=== PATIENT | female | born 1985 | race African-American/Black ===

== ENCOUNTER → 2017-10-18 | Outpatient (CLI) | payer OTHER ==
--- NOTE | 2017-10-18 11:38 | REP ---
RIGHT ANKLE, FOUR VIEWS: There is no evidence of an acute fracture, dislocation or intrinsic bone disease. The ankle mortise is anatomic. IMPRESSION: No fracture or dislocation. Signed by Chito Baugh MD 10/18/2017 12:57 P
== END ==
LOC: M WUC 10:49
PROVIDERS: ATTEND Physician Assistant
DX: M25.579 Pain in unspecified ankle and joints of unspecified foot (principal)

== ENCOUNTER 2018-01-02 18:53 | Emergency (ER) | payer OTHER ==
[2018-01-02 21:14] LABS: BASO % 0.3 % (0.0-1.0); EOS # 0.3 10^3/uL (0.0-0.50); EOS % 3.7 % (0.0-3.0); HEMATOCRIT 38.6 % (36.0-47.0); IMMATURE GRANULOCYTE % 0.1 % (0-3.0); LYMPH # 3.6 10^3/uL (1.5-4.5); LYMPH % 51.7 % (24.0-44.0); MEAN CORPUSCULAR HEMOGLOBIN 29.4 pg (27.0-33.0); MEAN CORPUSCULAR HGB CONC 33.7 g/dl (32.0-36.5); MEAN CORPUSCULAR VOLUME 87.3 fl (80.0-96.0); MONO # 0.4 10^3/uL (0.0-0.8); MONO % 6.3 % (0.0-5.0); NEUTROPHILS # 2.6 10^3/uL (1.8-7.7); NEUTROPHILS % 37.9 % (36.0-66.0); PLATELET COUNT, AUTOMATED 241 10^3/uL (150-450); RED BLOOD COUNT 4.42 10^6/uL (4.00-5.40); RED CELL DISTRIBUTION WIDTH 12.6 % (11.5-14.5)
[2018-01-02 21:18] LABS: KETONE, URINE AUTO RFX NEGATIVE (NEGATIVE); LEUKOCYTE ESTERASE UR AUTO RFX NEGATIVE (NEGATIVE); MUCUS, URINE RFX SMALL (NEGATIVE); NITRITE, URINE AUTO RFX NEGATIVE (NEGATIVE); RBC, URINE AUTO RFX 2 /HPF (0-3); SPECIFIC GRAVITY UR AUTO RFX 1.008 (1.002-1.035); SQUAM EPITHELIAL CELL UR AURFX 1 /HPF (0-6); WBC, URINE AUTO RFX 0 /HPF (0-3)
[2018-01-02 21:24] LABS: INR 1.08; PROTHROMBIN TIME 14.2 SECONDS (12.4-14.5)
[2018-01-02 21:25] LABS: PARTIAL THROMBOPLASTIN TIME 28.8 SECONDS (26.8-37.9)
[2018-01-02] MEDS: MECLIZINE 25 MG TABLET PO (21:35)
[2018-01-02] MEDS: diphenhydrAMINE INJ 50MG/ML VIAL (J1200) IV (21:35)
[2018-01-02] MEDS: METOCLOPRAMIDE INJ 10MG/2ML VIAL (J2765) IV (21:36)
[2018-01-02 22:45] LABS: ANION GAP 7 MEQ/L (8-16); BLOOD UREA NITROGEN 10 MG/DL (7-18); CARBON DIOXIDE LEVEL 26 MEQ/L (21-32); CHLORIDE LEVEL 108 MEQ/L (98-107); CPK CREATINE PHOSPHOKINASE 199 U/L (26-192); CREATININE FOR GFR 0.77 MG/DL (0.55-1.30); GLOMERULAR FILTRATION RATE > 60.0 (>60); GLUCOSE, FASTING 79 MG/DL (70-100); POTASSIUM SERUM 4.1 MEQ/L (3.5-5.1); SODIUM LEVEL 141 MEQ/L (136-145); TROPONIN I < 0.02 NG/ML (< 0.10)
[2018-01-02 22:46] LABS: CK-MB VALUE MASS 1.3 NG/ML (0.0-3.6); MB/CK RELATIVE INDEX 0.65 (< OR =4)
[2018-01-03 12:31] LABS: BEDSIDE GLUCOSE 123 MG/DL (70-105)
== END 2018-01-02 23:19 | disposition home or self-care (01) ==
LOC: M ED 18:53
DX: H81.12 Benign paroxysmal vertigo, left ear (principal); H65.02 Acute serous otitis media, left ear; R51 Headache
CPT/HCPCS: J1200

== ENCOUNTER 2018-01-18 14:11 | Emergency (ER) | payer OTHER | END 2018-01-18 16:20 | disposition home or self-care (01) | LOC: M ED 14:11 | DX: Z32.02 Encounter for pregnancy test, result negative (principal); R10.11 Right upper quadrant pain | CPT/HCPCS: 81025 ==

== ENCOUNTER 2018-08-13 17:03 | Outpatient (CLI) | payer OTHER ==
[2018-08-13] MEDS: LR 1,000 ML IV (19:57)
[2018-08-13 20:29] LABS: APPEARANCE, URINE CLOUDY (CLEAR); BACTERIA, URINE AUTO 1+ (NEGATIVE); BILIRUBIN, URINE AUTO NEGATIVE (NEGATIVE); BLOOD, URINE BLOOD NEGATIVE (NEGATIVE); COLOR, URINE YELLOW (YELLOW); GLUCOSE, URINE (UA) AUTO NEGATIVE (NEGATIVE); KETONE, URINE AUTO TRACE mg/dL (NEGATIVE); LEUKOCYTE ESTERASE, URINE AUTO NEGATIVE (NEGATIVE); MUCUS, URINE SMALL (NEGATIVE); NITRITE, URINE AUTO NEGATIVE (NEGATIVE); PROTEIN, URINE AUTO NEGATIVE (NEGATIVE); RBC, URINE AUTO 2 /HPF (0-3); SPECIFIC GRAVITY URINE AUTO 1.014 (1.002-1.035); SQUAMOUS EPITHELIAL CELL UR AU 17 /HPF (0-6); UROBILINOGEN, URINE AUTO 0.2 mg/dL (0.0-2.0); WBC, URINE AUTO 3 /HPF (0-3)
== END 2018-08-13 22:35 | disposition home or self-care (01) ==
LOC: M LDO 17:03
DX: O47.03 False labor before 37 completed weeks of gestation, third trimester (principal); Z3A.34 34 weeks gestation of pregnancy
CPT/HCPCS: 59025

== ENCOUNTER 2018-09-24 03:45 | Inpatient (IN) | payer OTHER ==
[2018-09-24] MEDS: LACTATED RINGER'S 1000 ML IV (06:42)
[2018-09-24 07:34] LABS: HEMATOCRIT 39.9 % (36.0-47.0); HEMOGLOBIN 13.1 g/dl (12.0-15.5); MEAN CORPUSCULAR HEMOGLOBIN 30.5 pg (27.0-33.0); MEAN CORPUSCULAR HGB CONC 32.8 g/dl (32.0-36.5); MEAN CORPUSCULAR VOLUME 92.8 fl (80.0-96.0); PLATELET COUNT, AUTOMATED 210 10^3/uL (150-450); RED CELL DISTRIBUTION WIDTH 13.9 % (11.5-14.5); WHITE BLOOD COUNT 8.2 10^3/uL (4.0-10.0)
[2018-09-24] MEDS: LR 1,000 ML IV ×3 (08:36→22:42)
[2018-09-24] MEDS ORDERED: LR 1,000 ML IV (09:06)
[2018-09-24] MEDS: OXYTOCIN DRIP 30 UNITS in APPROPRIATE DILUENT 1 EA IV (09:51)
[2018-09-24] MEDS ORDERED: FENTANYL 2MCG/ML ROPIVACAINE 0.2% IN 0.9% NACL 200ML IVBAG As Ordered (11:03)
[2018-09-24] MEDS ORDERED: ePHEDrine SULFATE 25 MG/5 ML(5MG/ML) SYRINGE As Ordered (11:53)
[2018-09-24] MEDS: ePHEDrine SULFATE 25 MG/5 ML(5MG/ML) SYRINGE IV (11:55)
[2018-09-24] MEDS ORDERED: NALOXONE INJ 0.4 MG/1 ML VIAL (J2310) IV ×3 (12:00→22:36)
[2018-09-24] MEDS ORDERED: EPIDURAL COMMENT XX (12:00)
[2018-09-24] MEDS ORDERED: REFRIGERATOR IV KEYS XX (12:00)
[2018-09-24] MEDS ORDERED: ONDANSETRON 4MG/2ML VIAL (J2405) IV ×2 (12:00→22:36)
[2018-09-24] MEDS ORDERED: diphenhydrAMINE INJ 50MG/ML VIAL (J1200) IV (12:00)
[2018-09-24] MEDS ORDERED: EPIDURAL/PCA KEYS XX (12:00)
[2018-09-24] MEDS: FENTANYL/ROPIVACAINE/NACL BAG 200 ML EPIDURAL (12:00)
[2018-09-24] MEDS ORDERED: LACTATED RINGER'S 1000 ML IV (12:00)
[2018-09-24] MEDS ORDERED: ceFAZolin 2 GM/D5W 50 ML IV BAG (J0690 PER 500MG) As Ordered (22:10)
[2018-09-24] MEDS ORDERED: BICITRA 30ML SOLN UDC As Ordered (22:11)
[2018-09-24] MEDS ORDERED: AZITHROMYCIN INJ 500MG VIAL (J0456) As Ordered (22:11)
[2018-09-24] MEDS: AZITHROMYCIN INJ 500 MG, VIAL MATE ADAPTER 1 EACH in D5W 250 ML IV (22:15)
[2018-09-24] MEDS: BICITRA 30ML SOLN UDC PO (22:25)
[2018-09-24] MEDS ORDERED: METOCLOPRAMIDE INJ 10MG/2ML VIAL (J2765) IV (22:36)
[2018-09-24] MEDS ORDERED: NALBUPHINE HCL 10 MG/ML AMP (J2300) IV (22:36)
[2018-09-24] MEDS ORDERED: MORPHINE PRES-FREE INJ 10 MG/10 ML VIAL (J2274) As Ordered (23:20)
[2018-09-24] MEDS ORDERED: ONDANSETRON 4MG/2ML VIAL (J2405) As Ordered (23:20)
[2018-09-24] MEDS ORDERED: dexameTHASONE 4 MG/ML 1ML VIAL (J1100) As Ordered (23:20)
[2018-09-24] MEDS ORDERED: BUPIVACAINE/DEXTROSE 0.75% 2 ML AMP As Ordered (23:20)
[2018-09-24] MEDS ORDERED: OXYTOCIN INJ 10 UNITS/ML VIAL (J2590) As Ordered (23:20)
[2018-09-24] MEDS ORDERED: fentaNYL 100 MCG/2 ML INJECTION (J3010) IV (23:45)
[2018-09-24] MEDS ORDERED: MEPERIDINE INJ 25 MG/ML VIAL (J2175) IV (23:45)
[2018-09-25] MEDS ORDERED: METOCLOPRAMIDE INJ 10MG/2ML VIAL (J2765) IV
[2018-09-25] MEDS ORDERED: RHOGAM 300 MCG (1500 IU) INJ (J2790) IM
[2018-09-25] MEDS ORDERED: MEASLES,MUMPS,RUBELLA VACCINE INJ (MMR-II) (90707) SC
[2018-09-25] MEDS ORDERED: PERCOCET 5MG/325MG TAB PO ×2
[2018-09-25] MEDS ORDERED: KETOROLAC 30 MG/ML VIAL (J1885) As Ordered (00:08)
[2018-09-25] MEDS ORDERED: OXYTOCIN 30 UNITS IN 0.9% NaCl 500ML IV BAG (J2590) As Ordered (00:08)
[2018-09-25] MEDS: OXYTOCIN DRIP 30 UNITS in APPROPRIATE DILUENT 1 EA IV ×2 (00:10→01:51)
[2018-09-25] MEDS: KETOROLAC 30 MG/ML VIAL (J1885) IV ×4 (00:11→18:01)
[2018-09-25] MEDS: DOCUSATE SODIUM 100 MG CAP PO ×2 (07:43→20:43)
[2018-09-25] MEDS: PRENATAL VITAMINS CHEWABLE TABLET PO (07:43)
[2018-09-26] MEDS: IBUPROFEN 800 MG TAB PO ×2 (02:09→09:49)
[2018-09-26 08:35] LABS: HEMATOCRIT 30.7 % (36.0-47.0); MEAN CORPUSCULAR HEMOGLOBIN 30.4 pg (27.0-33.0); MEAN CORPUSCULAR HGB CONC 33.2 g/dl (32.0-36.5); MEAN CORPUSCULAR VOLUME 91.4 fl (80.0-96.0); PLATELET COUNT, AUTOMATED 202 10^3/uL (150-450); RED BLOOD COUNT 3.36 10^6/uL (4.00-5.40); RED CELL DISTRIBUTION WIDTH 13.9 % (11.5-14.5); WHITE BLOOD COUNT 9.7 10^3/uL (4.0-10.0)
[2018-09-26 08:39] LABS: HEMOGLOBIN 10.2 g/dl (12.0-15.5)
[2018-09-26] MEDS: PRENATAL VITAMINS CHEWABLE TABLET PO (09:47)
[2018-09-26] MEDS: DOCUSATE SODIUM 100 MG CAP PO (09:47)
== END 2018-09-26 13:35 | disposition home or self-care (01) | DRG 773 ==
LOC: M LDO 03:45 → M OBS 09-25 01:00 → M LDI 06:44
PROVIDERS: Obstetrics & Gynecology
PROC: 10D00Z1 Extraction of Products of Conception, Low, Open Approach (ICD-10-PCS; principal; 2018-09-24 22:28)
DX: O62.0 Primary inadequate contractions (principal); Z37.0 Single live birth; Z3A.40 40 weeks gestation of pregnancy; E66.9 Obesity, unspecified; O99.214 Obesity complicating childbirth; D25.9 Leiomyoma of uterus, unspecified; O34.13 Maternal care for benign tumor of corpus uteri, third trimester; O48.0 Post-term pregnancy; O32.4XX0 Maternal care for high head at term, not applicable or unspecified